=== PATIENT | male | born 1950 | race Caucasian/White ===

== ENCOUNTER 2017-12-02 19:48 | Emergency (ER) | payer MEDICARE ==
[2017-12-02] MEDS ORDERED: Sodium Chloride 0.9% 1000 ML 1,000 ML IV STA (21:30)
--- NOTE | 2017-12-02 21:36 | ERPHSYRPT ---
- History of Present Illness Time Seen by Provider: 12/02/17 21:25 Source: patient Exam Limitations: no limitations Patient Subjective Stated Complaint: Pt c/o right foot and leg redness, warmth, and pain. fever of 102.7 at 1800 tonight. took 1000mg of tylenol at that time. saw dr. patel today and was given prescription for bactrim and arthritis medication but has not taken either yet. pt's states that pt was dilerious and stumbling around at home. pt c/o fatigue. pt states that Dr. Patel took a culture of wound today. Triage Nursing Assessment: Pt alert and oriented. Skin normal color for race except RLE. Lung sounds clear bilaterally anterior and posterior throughout. Bowel sounds present x 4 quadrants. RLE warm to the touch and red. Nonpitting edema present. Normal pedal pulses Physician History: This is a 67-year-old white male with history of DVT, myocardial infarction, arthritis, bradycardia, He arrives with complaint of erythema redness right lower extremity for 2-3 days he states he was seen by his family Dr. Dr. Patel, and given a prescription for Bactrim and a pain medication which he states he did not fell. He is noted to have a fever at home to 102.7, his family apparently has stated that he was confused at home. Currently the patient is alert oriented 3 he does not appear to be in acute distress. Past medical history includes DVT, myocardial infarction, arthritis, fractures, bradycardia Past surgical history includes cardiac catheter, cholecystectomy, left wrist spur Social history patient denies tobacco alcohol or illicit drug use Timing/Duration: day(s) (2-3 days) Severity: moderate Modifying Factors: Improves With: other ( follow-up) Allergies/Adverse Reactions: tramadol [From Ultram] Allergy (Verified 12/02/17 20:54) Home Medications: Aspirin 81 mg PO QAM 12/02/17 [History] Multivitamin [Multivitamins] 1 tab PO QAM 12/02/17 [History] Hx Tetanus, Diphtheria Vaccination/Date Given: Yes Hx Influenza Vaccination/Date Given: Yes (given 12/02/17) Immunizations Up to Date: Yes - Review of Systems Constitutional: Fever (the lower have vagal cli), No Chills Eyes: No Symptoms Ears, Nose, & Throat: No Symptoms Respiratory: No Cough, No Dyspnea Cardiac: No Chest Pain, No Edema, No Syncope Abdominal/Gastrointestinal: No Abdominal Pain, No Nausea, No Vomiting, No Diarrhea Genitourinary Symptoms: No Dysuria Musculoskeletal: Other (erythema right distal foot pain right distal foot), No Back Pain, No Neck Pain Skin: Other (erythema riht distal foot) Neurological: Other (patient's states patient was confused at home), No Dizziness, No Focal Weakness, No Gait Changes, No Headache, No Irritability, No Lethargy, No Paralysis, No Parasthesia, No Seizure, No Speech Changes, No Tics, No Tremors, No Vertigo Psychological: No Symptoms Endocrine: No Symptoms - Past Medical History Pertinent Past Medical History: Yes Neurological History: No Pertinent History ENT History: No Pertinent History Cardiac History: Deep Vein Thrombosis, Myocardial Infarction ([place]) Respiratory History: No Pertinent History Endocrine Medical History: No Pertinent History Musculoskeletal History: Arthritis, Fractures GI Medical History: No Pertinent History History: No Pertinent History Psycho-Social History: No Pertinent History Male Reproductive Disorders: No Pertinent History Other Medical History: bradycardia - Past Surgical History Past Surgical History: Yes Neuro Surgical History: No Pertinent History Cardiac: Cardiac Catheterization Respiratory: No Pertinent History Gastrointestinal: Cholecystectomy, Other Genitourinary: No Pertinent History Musculoskeletal: Other Male Surgical History: No Pertinent History Other Surgical History: colonoscopy - next one 12/11/17. left wrist spur removed - Social History Smoking Status: Never smoker Drug Use: none - Nursing Vital Signs Nursing Vital Signs: Initial Vital Signs Temperature 101.7 F 12/02/17 19:50 Pulse Rate 66 12/02/17 19:50 Respiratory Rate 18 12/02/17 19:50 Blood Pressure 120/62 12/02/17 19:50 O2 Sat by Pulse Oximetry 96 12/02/17 19:50 Pain Scale Pain Intensity 0 - Physical Exam General Appearance: no apparent distress, alert Eye Exam: PERRL/EOMI, eyes nml inspection Ears, Nose, Throat Exam: normal ENT inspection, TMs normal, pharynx normal, moist mucous membranes Neck Exam: normal inspection, non-tender, supple, full range of motion Respiratory Exam: normal breath sounds, lungs clear, No respiratory distress Cardiovascular Exam: regular rate/rhythm, normal heart sounds, normal peripheral pulses Gastrointestinal/Abdomen Exam: soft, normal bowel sounds, No tenderness, No mass Back Exam: normal inspection, normal range of motion, No CVA tenderness, No vertebral tenderness Extremity Exam: normal inspection, normal range of motion, pelvis stable Neurologic Exam: alert, oriented x 3, cooperative, normal mood/affect, nml cerebellar function, nml station & gait, sensation nml, No motor deficits Skin Exam: other (erythema right distal leg and foot) SpO2 Interpretation: normal (96%) SpO2: 96 Oxygen Delivery: Room Air - Course Nursing assessment & vital signs reviewed: Yes - Radiology Exams Chest X-ray Interpretation: Reviewed by me (no acute disease process noted no old cxr for comparison) Ordered Tests: Active Orders 24 hr Category Date Time Status Health Coach STAT Care 12/02/17 21:29 Active IV Insertion STAT Care 12/02/17 21:29 Active Pulse Oximetry (ED) STAT Care 12/02/17 21:29 Active CHEST 1 VIEW (PORTABLE) Stat Exams 12/02/17 22:42 Taken BLOOD CULTURE Stat Lab 12/02/17 21:50 Received CBC W DIFF Stat Lab 12/02/17 21:40 Completed CMP Stat Lab 12/02/17 21:40 Completed CULTURE,URINE Stat Lab 12/02/17 21:45 Received D-DIMER QUANTITATION Stat Lab 12/02/17 21:50 Completed Lactic Acid Stat Lab 12/02/17 21:43 Completed Manual Differential NC Stat Lab 12/02/17 21:40 Completed PROTIME WITH INR Stat Lab 12/02/17 21:40 Completed PTT Stat Lab 12/02/17 21:40 Completed UA Stat Lab 12/02/17 21:45 Completed Medication Summary Discontinued Medications Generic Name Dose Route Start Last Admin Trade Name Freq PRN Reason Stop Dose Admin Sodium Chloride 1,000 mls @ 999 mls/hr 12/02/17 21:30 12/02/17 21:51 Sodium Chloride 0.9% 1000 Ml IV 12/02/17 22:30 999 mls/hr .Q1H1M STA Administration Sodium Chloride Confirm 12/02/17 21:48 Sodium Chloride 0.9% 1000 Ml Administered 12/02/17 21:49 Dose 1,000 mls @ ud .ROUTE .STK-MED ONE Vancomycin HCl 250 mls @ 167 mls/hr 12/02/17 22:39 12/02/17 23:01 Vancomycin 1gm/ Ns 250ml IV 12/03/17 00:08 167 mls/hr STAT ONE Administration Vancomycin HCl Confirm 12/02/17 22:50 Vancomycin 1gm/ Ns 250ml Administered 12/02/17 22:51 Dose 250 mls @ ud IV .STK-MED ONE Lab/Rad Data: Laboratory Result Diagrams 12/02/17 21:40 12/02/17 21:40 Laboratory Results 12/02/17 12/02/17 12/02/17 Range/Units 21:50 21:45 21:43 WBC (4.0-10.5) K/mm3 RBC (4.1-5.6) M/mm3 Hgb (12.5-18.0) gm/dl Hct (42-50) % MCV (78-100) fl MCH (26-32) pg MCHC (32-36) g/dl RDW (11.5-14.0) % Plt Count (150-450) K/mm3 MPV (6-9.5) fl Absolute Granulocytes (1.4-6.9) Segmented Neutrophils (36.-66.) % Lymphocytes (Manual) (24-44) % Monocytes (Manual) (0.0-12.0) % Platelet Estimate (NORMAL) RBC Morphology PT (8.83-12.87) SECONDS INR (0.8-3.0) APTT (24.1-36.1) SECONDS D-Dimer 447 (215-500) ng/mL Sodium (137-145) mmol/L Potassium (3.5-5.1) mmol/L Chloride (98-107) mmol/L Carbon Dioxide (22-30) mmol/L Anion Gap (5-15) MEQ/L BUN (9-20) mg/dL Creatinine (0.66-1.25) mg/dL Estimated GFR ML/MIN Glucose (74-106) mg/dL Lactic Acid 0.6 (0.4-2.0) Calcium (8.4-10.2) mg/dL Total Bilirubin (0.2-1.3) mg/dL AST (17-59) U/L ALT (0-50) U/L Alkaline Phosphatase (38-126) U/L Serum Total Protein (6.3-8.2) g/dL Albumin (3.5-5.0) g/dL Ur Collection Type VOID Urine Color YELLOW (YELLOW) Urine Appearance CLEAR (CLEAR) Urine pH 6.0 (5-6) Ur Specific [place] 1.010 (1.005-1.025) Urine Protein NEGATIVE (Negative) Urine Ketones NEGATIVE (NEGATIVE) Urine Blood NEGATIVE (0-5) Sergio/ul Urine Nitrite NEGATIVE (NEGATIVE) Urine Bilirubin NEGATIVE (NEGATIVE) Urine Urobilinogen NORMAL (0-1) mg/dL Ur Leukocyte Esterase NEGATIVE (NEGATIVE) Urine Glucose NEGATIVE (NEGATIVE) mg/dL Specimen Received 12/02/17 2210 12/02/17 12/02/17 12/02/17 Range/Units 21:40 21:40 21:40 WBC 4.2 (4.0-10.5) K/mm3 RBC 3.85 L (4.1-5.6) M/mm3 Hgb 12.6 (12.5-18.0) gm/dl Hct 36.5 L (42-50) % MCV 94.8 (78-100) fl MCH 32.7 H (26-32) pg MCHC 34.5 (32-36) g/dl RDW 13.2 (11.5-14.0) % Plt Count 55 L (150-450) K/mm3 MPV 9.9 H (6-9.5) fl Absolute Granulocytes 3.42 (1.4-6.9) Segmented Neutrophils 77 H (36.-66.) % Lymphocytes (Manual) 15 L (24-44) % Monocytes (Manual) 8 (0.0-12.0) % Platelet Estimate DECREASED (NORMAL) RBC Morphology NORMAL PT 14.9 H (8.83-12.87) SECONDS INR 1.28 (0.8-3.0) APTT 31.3 (24.1-36.1) SECONDS D-Dimer (215-500) ng/mL Sodium 137 (137-145) mmol/L Potassium 3.8 (3.5-5.1) mmol/L Chloride 100 (98-107) mmol/L Carbon Dioxide 27 (22-30) mmol/L Anion Gap 13.6 (5-15) MEQ/L BUN 27 H (9-20) mg/dL Creatinine 0.79 (0.66-1.25) mg/dL Estimated GFR > 60.0 ML/MIN Glucose 104 (74-106) mg/dL Lactic Acid (0.4-2.0) Calcium 9.4 (8.4-10.2) mg/dL Total Bilirubin 1.20 (0.2-1.3) mg/dL AST 32 (17-59) U/L ALT 20 (0-50) U/L Alkaline Phosphatase 64 (38-126) U/L Serum Total Protein 7.3 (6.3-8.2) g/dL Albumin 4.3 (3.5-5.0) g/dL Ur Collection Type Urine Color (YELLOW) Urine Appearance (CLEAR) Urine pH (5-6) Ur Specific [place] (1.005-1.025) Urine Protein (Negative) Urine Ketones (NEGATIVE) Urine Blood (0-5) Sergio/ul Urine Nitrite (NEGATIVE) Urine Bilirubin (NEGATIVE) Urine Urobilinogen (0-1) mg/dL Ur Leukocyte Esterase (NEGATIVE) Urine Glucose (NEGATIVE) mg/dL Specimen Received - Progress Progress: improved Progress Note: 12/02/17 22:19 67-year-old white male arrives with complaint of erythema and pain to the distal right foot and leg symptoms for 2-3 days. He was seen by his family doctor today placed on Bactrim however he did not take it. He arrives with complaint of fever at home thought he was confused at home. On arrival patient is alert oriented 3 he does not appear to be in acute distress he has a normal neurologic examination. He is answering questions well. He appears to have good perfusion to all extremities he has slight erythema to the dorsal right foot distal right leg. Patient's lactate is noted to be 0.6 patient is receiving IV normal saline. Appropriate labs are ordered Patient had apparently received Tylenol at home temperature is now improved. Will anticipate to IV antibiotics here in the emergency room anticipate patient probably will need to start his Bactrim. 12/02/17 23:31 Patient's labs are essentially normal. Patient's leg and foot looked markedly improved with elevation. I have ordered vancomycin 1 g IV. Patient also 1 L normal saline ordered IV. Will anticipate discharge patient to fill his Bactrim and follow-up with his family doctor. Tylenol every 4 hours as needed for fever. 12/03/17 00:12 Patient continues to well. Patient is afebrile. Receiving vancomycin. Will discharge. - Departure Time of Disposition: 00:12 Departure Disposition: Home Clinical Impression: Fever Qualifiers: Fever type: unspecified Qualified Code(s): R50.9 - Fever, unspecified Cellulitis Qualifiers: Site of cellulitis: extremity Site of cellulitis of extremity: lower extremity Laterality: right Qualified Code(s): L03.115 - Cellulitis of right lower limb Condition: Fair Critical Care Time: No Referrals: ALIA FENRANDEZ MD [Primary Care Provider] - Instructions: Fever, Adult (DC) Additional Instructions: Return home. Plenty of fluids. Tylenol every 4 hours as needed for temperature greater than 100.5. Fill your prescription of Bactrim and take it as directed by your family doctor. Follow-up with your family doctor call and arrange follow-up appointment. Return for acute distress or for severe symptoms.
[2017-12-02] MEDS ORDERED: Sodium Chloride 0.9% 1000 ML 1,000 ML ONE (21:48)
[2017-12-02 22:02] LABS: Granulocyte Absolute (ANC) 3.42 (1.4-6.9); Hematocrit 36.5 % (42-50); Hemoglobin 12.6 gm/dl (12.5-18.0); Mean Cell Volume 94.8 fl (78-100); Mean Corpuscular Hemoglobin 32.7 pg (26-32); Mean Corpuscular Hgb Concent. 34.5 g/dl (32-36); Mean Platelet Volume 9.9 fl (6-9.5); Platelet Count 55 K/mm3 (150-450); Red Blood Count 3.85 M/mm3 (4.1-5.6); Red Cell Distribution Width 13.2 % (11.5-14.0); White Blood Count 4.2 K/mm3 (4.0-10.5)
[2017-12-02 22:14] LABS: Appearance CLEAR (CLEAR); Bilirubin NEGATIVE (NEGATIVE); Blood NEGATIVE Ery/ul (0-5); Glucose NEGATIVE (NEGATIVE); Ketones NEGATIVE (NEGATIVE); Leukocyte Esterase NEGATIVE (NEGATIVE); Nitrite NEGATIVE (NEGATIVE); Protein,Urine Dip NEGATIVE (Negative); Urobilinogen NORMAL mg/dL (0-1)
[2017-12-02 22:19] LABS: INR 1.28 (0.8-3.0)
[2017-12-02 22:22] LABS: PTT 31.3 SECONDS (24.1-36.1)
[2017-12-02 22:23] LABS: ALBUMIN 4.3 g/dL (3.5-5.0); ALKALINE PHOSPHATASE 64 U/L (38-126); ANION GAP 13.6 MEQ/L (5-15); BLOOD UREA NITROGEN 27 mg/dL (9-20); CHLORIDE 100 mmol/L (98-107); Calcium 9.4 mg/dL (8.4-10.2); Carbon Dioxide 27 mmol/L (22-30); Creatinine 1 0.79 mg/dL (0.66-1.25); Glucose 104 mg/dL (74-106); Potassium 3.8 mmol/L (3.5-5.1); SGOT/AST 32 U/L (17-59); SGPT/ALT 20 U/L (0-50); SODIUM 137 mmol/L (137-145); Total Protein 7.3 g/dL (6.3-8.2)
[2017-12-02] MEDS ORDERED: Vancomycin 1GM/ Ns 250ML*** 250 ML IV ONE ×2 (22:39→22:50)
[2017-12-02 23:02] LABS: Lymphocytes 15 % (24-44); Monocyte 8 % (0.0-12.0); Neutrophils 77 % (36.-66.); Platelet Estimate DECREASED (NORMAL); Total Cells Counted 100
[2017-12-03 00:13] VITALS: PULSE 53; O2SAT 96
[2017-12-03 00:51] VITALS: BP 114/70
--- NOTE | 2017-12-03 09:02 | XRAY ---
Indication: Fever. Comparison: None Portable chest demonstrates normal heart and lungs with a few incidental calcified granulomas. Bony thorax intact with mild degenerative changes.
== END 2017-12-03 00:52 | disposition home or self-care (01) ==
LOC: ED 19:48
DX: R50.9 Fever, unspecified (principal); L03.115 Cellulitis of right lower limb; M79.673 Pain in unspecified foot; Z79.82 Long term (current) use of aspirin; Z86.718 Personal history of other venous thrombosis and embolism; I25.2 Old myocardial infarction
CPT/HCPCS: 36000; 36415; 71045; 80053; 81003; 83605; 85025; 85379; 85610; 85730; 87040; 87086; 93041; 96360; 96365; 99284; J3370